=== PATIENT | male | born 1945 | race Caucasian/White ===

== ENCOUNTER 2020-10-08 07:57 | Day surgery (SDC) | payer OTHER, MEDICARE ==
[~2020-10-08 07:57] MED LIST: Metoclopramide 10 MG/2 ML SDV IV PRN; Sodium Chloride 0.9% 1,000 ML IV SCH
[2020-10-08] MEDS ORDERED: Midazolam 1 MG/ML 2 ML SDV ONE (09:25)
--- NOTE | 2020-10-08 12:59 | OR ---
DATE OF OPERATION: 10/08/2020 SURGEON: Samy Figueredo MD PREOPERATIVE DIAGNOSIS: Personal history of colon polyps. POSTOPERATIVE DIAGNOSIS: Personal history of colon polyps. PROCEDURE: Colonoscopy. ANESTHESIA: MAC. ESTIMATED BLOOD LOSS: None. COMPLICATIONS: None. INDICATION FOR THE PROCEDURE: The patient is a 74-year-old male who has had a personal history of colorectal polyps. Last colonoscopy was 3 years ago and did have polyps. No changes in bowel habits since that time. He is here for a routine scheduled 3-year followup. DESCRIPTION OF THE PROCEDURE: Informed consent was obtained from the patient. The patient was taken to the operating room and placed on the table in left lateral decubitus position. Monitored anesthesia care was administered. Digital rectal exam was performed and was normal. Colonoscope was then advanced through the anus and directed toward the cecum. Cecum was reached and identified by ileocecal valve. Colonoscope was then slowly withdrawn. No polyps. No masses. No areas of ischemia or inflammation identified. Did have a few small diverticula in the sigmoid and descending colon. The rectum was otherwise unremarkable as well. The colonoscope was then withdrawn. FINDINGS: A few scattered small sigmoid and descending diverticula. RECOMMENDATION: Would recommend repeat surveillance colonoscopy in 5 years due to history of polyps. JASMIN/ZHAO /[id number]
== END 2020-10-08 10:25 | disposition home or self-care (01) ==
LOC: LB.SDS 07:57
PROVIDERS: ATTEND Surgery
DX: Z12.11 Encounter for screening for malignant neoplasm of colon (principal); K57.30 Diverticulosis of large intestine without perforation or abscess without bleeding; E78.5 Hyperlipidemia, unspecified; I10 Essential (primary) hypertension; E11.9 Type 2 diabetes mellitus without complications; Z79.4 Long term (current) use of insulin; Z86.010 Personal history of colon polyps; Z79.899 Other long term (current) drug therapy
CPT/HCPCS: J2250; J7030

== ENCOUNTER 2021-01-06 07:42 | Day surgery (SDC) | payer OTHER, MEDICARE ==
[~2021-01-06 07:42] MED LIST changes: +Acetaminophen/HYDROcodone 325-5 MG Tab PO PRN; +Lactated Ringers 1,000 ML IV SCH; -Metoclopramide 10 MG/2 ML SDV IV PRN; +Morphine 2 MG/ML SYRINGE IVPUSH PRN; +Ondansetron 4 MG/2 ML SDV IVPUSH PRN; -Sodium Chloride 0.9% 1,000 ML IV SCH; +Sodium Phosphate,Monobasic/Sodium Phosphate,Dibasic Enema 133 ML Bottle RECTAL SCH
[2021-01-06] MEDS ORDERED: Bupivacaine 0.5% 10 ML SDV ONE (10:00)
[2021-01-06] MEDS ORDERED: Propofol 200 MG/20 ML SDV ONE (10:00)
[2021-01-06] MEDS ORDERED: Clindamycin Phosphate 900 MG/6 ML SDV IV ONE (10:15)
--- NOTE | 2021-01-07 07:10 | OR ---
DATE OF OPERATION: 01/06/2021 SURGEON: Samy Figueredo MD FIELD MACHINIST: Daisha Bruce RN PREOPERATIVE DIAGNOSIS: Anal skin tag. POSTOPERATIVE DIAGNOSIS: Anal skin tag. PROCEDURE: Excision of anal skin tag. ANESTHESIA: Spinal. ESTIMATED BLOOD LOSS: Minimal. COMPLICATIONS: None. INDICATION FOR THE PROCEDURE: The patient is a 75-year-old male who has had uncomfortable anal skin tag for quite some time. He would like it removed. DESCRIPTION OF PROCEDURE: Informed consent was obtained with the patient. The patient was taken to the operating room, placed on table in the prone dylan-knife position. Spinal anesthesia had previously been administered. He did receive preoperative antibiotics. His perineum was prepped and draped in sterile fashion. Anus dilator up to 3 fingerbreadths, anoscope then inserted. The patient was noted to have some mild anal grade 2 internal hemorrhoids, which have not been bleeding or bothering him. A large perianal skin tag noted at the 6 o'clock position. This was grasped with Allis. Base was infiltrated with local anesthetic. Elliptical incision carried out with a 15 blade. Subcutaneous tissues divided with blunt dissection as well as using electrocautery. Skin tags then removed. Hemostasis obtained with electrocautery. Wound then closed with running locking 2-0 chromic suture. Prior to incision, 2-0 chromic transfixing stitch placed proximally to the skin tag as well. At the end of the case, no active bleeding was seen. All sponge count, needle counts were correct. Dressing and underwear were applied. The patient tolerated the procedure well and was brought to recovery room in good condition. JASMIN/ZHAO /[id number]
== END 2021-01-06 14:20 | disposition home or self-care (01) ==
LOC: LB.SDS 07:42
PROVIDERS: ATTEND Surgery
DX: K62.0 Anal polyp (principal); K64.8 Other hemorrhoids; Z87.891 Personal history of nicotine dependence; Z79.84 Long term (current) use of oral hypoglycemic drugs; Z79.899 Other long term (current) drug therapy
CPT/HCPCS: 82962; J2704; J3490; J7120